=== PATIENT | male | born 1950 | race Caucasian/White ===

== ENCOUNTER → 2016-11-10 | Outpatient (CLI) | payer BC ==
[~2016-11-10] MED LIST: ASPIRIN (CHILDR81 MG PO; BRILINTA90 MG PO; LOPRESSOR25 MG PO; NITROSTAT0.4 MG SL; TAPAZOLE5 MG PO; TYLENOL325 MG PO; VASOTEC2.5 MG PO; ZOCOR40 MG PO
== END | disposition disaster alternative care site (69) ==
LOC: GRAD 08:59
DX: E05.90 Thyrotoxicosis, unspecified without thyrotoxic crisis or storm (principal); R93.8 Abnormal findings on diagnostic imaging of other specified body structures
CPT/HCPCS: A9516